=== PATIENT | female | born 1995 | race Caucasian/White ===

== ENCOUNTER 2016-12-25 04:14 | Emergency (ER) | payer OTHER ==
[~2016-12-25] VITALS: Ht 162.6 cm; Wt 59.1 kg
[2016-12-25 04:17] VITALS: BP 146/94; RESP 16; O2SAT 100
--- NOTE | 2016-12-25 04:27 | ED.REPORT ---
HPI-Eye Problem Date of Service Dec 25, 2016 ED Provider: Luis Montero MD Patient is a 21 year old female who presents to the ED complaining of bilateral eye irritation and discharge that began yesterday. Patient states that her eyes are itchy and uncomfortable. Patient has not recently been exposed to anyone that has an eye infection and she does not wear contact lenses. Patient also believes that she has been exposed to an STD and would like to be tested. She reports having unprotected sexual intercourse several times with the same male partner and that she has had multiple sexual partners. She does not know if any of her pervious partners had confirmed STDs. Patient states that she has recently developed foul smelling vaginal discharge. Patient denies pelvic pain. Nursing Notes Stated Complaint: LEFT EYE DISCHARGE Chief Complaint: ENT & Mouth Nursing Notes Reviewed: Yes Allergies: Coded Allergies: Latex, Natural Rubber (Verified Allergy, Intermediate, Rash,Itching,, 12/25) No Active Prescriptions or Reported Meds General Time Seen by MD: 04:26 Chief Complaint Left eye affected, Discharge..., Irritation/itching Hx Obtained From: Patient Arrived By: Walk-in Sudden in Onset?: No Onset Occurred: Yesterday Symptom Duration: Since onset Progression Since Onset: Gradually worsening Location: : Eye both Quality: Painful Severity: Current: Mild Severity: Maximum: Moderate Related History: Denies: Contact lens use Recent Healthcare: No recent doctor visit, No recent hospitalization Similar Sx Previous: No Past Medical History Past Medical History history of PID, trichomonas, and chlamydia Past Surgical History Jaw surgery Leg surgery, ears as a child Smoking History Current Every Day Smoker Social History Alcohol Use: Denies alcohol use Drug Use: Meth Other Social History: Good social support, Local resident Occupation single, homeless, not interested in social work at this time Ambulatory Status Independent Review of Systems Eyes: Reports: Discharge bilateral, Eye pain bilateral, Redness bilateral Complete sys rev & neg: except as marked. Female: Reports: Vaginal discharge, Denies: Pelvic pain Physical Exam Initial Vital Signs Vital Signs (First) Date Time Temp Pulse Resp B/P Pulse Ox O2 Delivery O2 Flow Rate FiO2 12/25/16 04:17 36.9 113 16 146/94 100 Room Air Initial VS: Reviewed, Vital signs abnormal Neck: Supple, Full range of motion Abdomen / GI: Soft, Non-tender Extremities: Vascular intact, Neuro intact Neurologic: Alert, Oriented, Nonfocal Psychiatric: Mood/affect normal, Behavior normal, Normal thought content Head / Eyes: Normocephalic, PERRL Conjunctiva / Sclera: Positive: Discharge L... (mattered), Discharge R... ( mattered), Injected left, Injected right General/Constitutional: Awake, Alert, No acute distress ENT: Airway patent, Mucous membranes moist Skin: Warm, Dry Rash / Lesion Notes: facial acne Neck: Supple, Full range of motion Respiratory / Chest: No respiratory distress, No stridor Cardiovascular: Heart rate NL, Regular rhythm Female Genitourinary: Meteorology Teacher present (MARYAN Gallagher) Vaginal Bleeding / Discharge: Positive: Discharge white (slight white discharge with fishy over) Pelvic Exam: Positive: Cervical motion tend... (mild cervical tenderness and erythema) Interpretation & Diagnostics Lab Results Interpretation Test 12/25/16 05:00 Re-Eval/Medical Decision Med Decision/Clinical Course Bilateral conjunctivitis without evidence of foreign body. She is not a contact wearer. She has not been exposed as far she knows. She was given gentamicin and flurbiprofen. Bacterial culture and chlamydia NAAT is pending. Vaginal discharge with clue cells consistent with bacterial vaginosis. Chlamydia and gonorrhea NAAT is pending. She will call me in 2 nights to discuss results. Source of Hx: Old records Re-Evaluation/Progress #1: Time of Eval: 05:00 Re-Evaluation/Progress Note: Pelvic exam performed. Re-Evaluation/Progress #2: Time of Eval: 05:57 Re-Evaluation/Progress Note: Informed the patient of the results of her wet prep. She will be treated for bacterial vaginosis. Awaiting the rest of her test results. Patient understands and agrees with the plan to be discharged home. Discharge instructions and follow-up discussed. All questions were addressed. Return to the ED warnings given. Counseled Regarding: Diagnosis, Lab results, Need for follow-up, When/why to return to ED Discharge & Departure Primary Impression: Conjunctivitis Conjunctivitis type: acute Acute conjunctivitis type: bacterial Laterality : bilateral Qualified Code: H10.023 - Other mucopurulent conjunctivitis, bilateral Additional Impression: Bacterial vaginosis Disposition: Home Discharge Condition All VS Reviewed: Yes Condition: Stable Patient Instructions: Bacterial Vaginosis (ED), Conjunctivitis (ED), Sexually Transmitted Diseases (ED) Additional Instructions: We will treat your conjunctivitis with gentamicin antibiotic drops and flurbiprofen pain medication drops. Cultures are pending to further differentiate the cause of this. Your vaginal discharge seems to be from bacterial vaginosis. Metronidazole 500 mg by mouth 3 times a day for 7 days, #21 prescription dispensed. Do not drink alcohol while you are on this medication. Cultures are also pending for this. Contact me at [phone] between the hours of 9 PM and 6 AM for the next couple of nights as needed for questions and concerns. Referrals: OTHER,PHYSICIAN (PCP) Scribe Attestation Portions of this note were transcribed by Meme Roblero. I, Dr. Montero personally performed the history, physical exam and medical decision-making; I reviewed and confirmed the accuracy of the information in the transcribed note. Signed by: Beth Iqbal, 12/25/2016 0557 copies to: OTHER,PHYSICIAN Luis Montero MD Dec 25, 2016 04:27 Meme Roblero Dec 25, 2016 04:42
[2016-12-25] MEDS ORDERED: _Gentamicin 0.3% Oph Solution 5 mL AFFECT_EYE SCH (05:50)
[2016-12-25] MEDS ORDERED: _Flurbiprofen 0.03% Oph Soln 2.5 mL AFFECT_EYE SCH (06:00)
[2016-12-25 06:07] VITALS: BP 138/84; PULSE 104; RESP 16; O2SAT 99
[2016-12-25] MEDS ORDERED: _metroNIDAZOLE 500 mg Tablet PO SCH (08:30)
== END 2016-12-25 06:08 | disposition home or self-care (01) ==
LOC: SED 04:14
DX: H10.023 Other mucopurulent conjunctivitis, bilateral (principal); N76.0 Acute vaginitis; F17.210 Nicotine dependence, cigarettes, uncomplicated; Z91.040 Latex allergy status

== ENCOUNTER 2017-02-18 23:12 | Emergency (ER) | payer OTHER ==
[~2017-02-18] VITALS: Ht 162.6 cm; Wt 54.5 kg
[2017-02-18 23:13] VITALS: BP 132/95; PULSE 118; RESP 20; O2SAT 100
--- NOTE | 2017-02-18 23:14 | ED.REPORT ---
HPI-General Illness Date of Service Feb 18, 2017 ED Provider: MD Chava This is a 21 year old female with a history of PID, trichomonas, and chlamydia presenting to the emergency department due to cough that began one month ago. Describes progressively worsening productive cough with green sputum. This is associated with nasal congestion, bilateral earache, headache, and low back pain. Denies hematemesis, dysuria, fever, chills, nausea, vomiting, shortness of breath, bowel or bladder changes at this time. Nursing Notes Stated Complaint: COUGH,HEADACHE,BACK PAIN Chief Complaint: FLU/Cold Symptoms Nursing Notes Reviewed: Yes Allergies: Coded Allergies: Latex, Natural Rubber (Verified Allergy, Intermediate, Rash,Itching,, 02/18) Scheduled Cephalexin (Keflex) 500 Mg Capsule 500 MG PO QID Prednisone (PredniSONE) 20 Mg Tablet 60 MG PO DAILY General Time Seen by MD: 23:14 Chief Complaint Cough Hx Obtained From: Patient Arrived By: Walk-in Sudden in Onset?: Yes Onset Occurred: More than a week ago... (1 month) Symptom Duration: Since onset Severity: Current: Mild Pertinent Negative: Pt denies other symptoms Recent Healthcare: No recent doctor visit, No recent hospitalization Similar Sx Previous: No Past Medical History Past Medical History history of PID, trichomonas, and chlamydia Past Surgical History Jaw surgery Leg surgery, ears as a child Smoking History Current Every Day Smoker Social History Alcohol Use: Denies alcohol use Drug Use: Meth Other Social History: Good social support, Local resident Occupation single, homeless, not interested in social work at this time Ambulatory Status Independent Review of Systems Full Review of Systems Constitutional: Denies: Chills, Fever Respiratory: Reports: Prod cough, green, Denies: Shortness of breath Cardiovascular: Denies: Chest pain GI: Denies: Abdominal pain, Constipation, Diarrhea, Nausea, Vomiting Female: Denies: Dysuria Musculoskeletal: Reports: Back pain Neurologic: Reports: Headache Complete sys rev & neg: except as marked. Physical Exam Vital Signs Vital Signs Date Time Temp Pulse Resp B/P Pulse Ox O2 Delivery O2 Flow Rate FiO2 02/19/17 01:08 88 18 Room Air 02/18/17 23:51 119 18 96 Room Air 02/18/17 23:13 36.8 118 20 132/95 100 Room Air - Initial VS: Reviewed Neck: Supple, Non-tender, Full range of motion Cardiovascular: Regular rate & rhythm, Heart sounds normal, Intact distal pulses Abdomen / GI: Soft, Non-tender, No guarding, No rebound, No distention Extremities: Vascular intact, Neuro intact, No swelling, No tenderness Skin: Warm, Dry, No cyanosis Neurologic: Alert, Oriented, Nonfocal Psychiatric: Mood/affect normal, Behavior normal, Normal thought content General/Constitutional: Awake, Alert ENT: Airway patent, Mucous membranes moist Respiratory / Chest: No respiratory distress, No rales, No wheezing Rales / Rhonchi: Positive: Rhonchi diffuse Bronchospastic cough Interpretation & Diagnostics Lab Results Interpretation Test 02/19/17 00:26 Urine Color Yellow (YELLOW) Urine Appearance Cloudy (CLEAR,HAZY) Urine pH 6.0 (5.0-8.0) Urine Specific [place] 1.025 (1.003-1.035) Urine Protein Negativemg/dL (NEG,TRACE) Urine Glucose (UA) Negativemg/dL (NEGATIVE) Urine Ketones Tracemg/dL (NEGATIVE) Urine Occult Blood Moderate (NEGATIVE) Urine Nitrite Positive (NEGATIVE) Urine Bilirubin Negative (NEGATIVE) Urine Urobilinogen Normalmg/dL (NORMAL) Urine Leukocyte Esterase Trace (NEGATIVE) Urine RBC 0-2/hpf (0-2) Urine WBC >50/hpf (0-5) Urine Epithelial Cells Few/hpf (NONE-MOD) Urine Crystals None seen (NONE SEEN) Urine Bacteria Many/hpf (NONE-FEW) Urine Hyaline Casts None/lpf (NONE) Urine Granular Casts None seen (NONE SEEN) Urine Waxy Casts None seen (NONE SEEN) Urine Red Blood Cell Casts None seen (NONE SEEN) Urine White Blood Cell Casts None seen (NONE SEEN) Urine Mucus None seen (None Seen) Urine Trichomonas None seen (NONE SEEN) Urine Yeast None (NONE SEEN) Urinalysis Comment Urine Culture Reflexed Indicated X-Ray Chest Interpretation Interpretation / Wet Read by: Wet read ED physician NL X-Ray Chest Findings: No acute disease Re-Eval/Medical Decision Med Decision/Clinical Course 21-year-old female presents with persistent constant cough for three months, and incidental dysuria. She continues to smoke. Cough is grossly bronchospastic, but x-ray does not reveal pneumonia. It does show significant changes of COPD. She is improved after nebulizer and is discharged with an albuterol puffer and spacer. Begun with Keflex for bronchitis as well as for her UTI. Brief steroid course prescribed. Smoking cessation strongly advised. Follow up with PCP. Time of Eval: 00:56 Re-Evaluation/Progress Note: Discussed lab and imaging results and plan for d/c, all questions addressed. Counseled Regarding: Diagnosis, Lab results, Need for follow-up Discharge & Departure Primary Impression: Bronchitis Additional Impressions: Chronic obstructive pulmonary disease COPD type: unspecified COPD Qualified Code: J44.9 - Chronic obstructive pulmonary disease, unspecified UTI (urinary tract infection) Urinary tract infection type: site unspecified Hematuria presence: without hematuria Qualified Code: N39.0 - Urinary tract infection, site not specified Disposition: Home Discharge Condition All VS Reviewed: Yes Condition: Stable Patient Instructions: Chronic Obstructive Pulmonary Disease (ED) Additional Instructions: Begin prednisone three tabs daily for five days. Begin albuterol two puffs with spacer every four hours for cough and wheeze. Ibuprofen as needed for back pain. Begin Keflex four times daily for ten days. Follow-up with your doctor in the office. He may follow up at residency clinic if you need local care. Return if worsening breathing problems despite treatment. Referrals: OTHER,PHYSICIAN (PCP) [facility] Scribe Attestation Portions of this note were transcribed by Alfredo Santoyo. I, Dr. Larsen personally performed the history, physical exam and medical decision-making; I reviewed and confirmed the accuracy of the information in the transcribed note. Signed by Beth Gauthier, 02/18/2017 at 06:00. copies to: [facility] Anatoliy Larsen MD Feb 18, 2017 23:14 ALFREDO SANTOYO Feb 18, 2017 23:16
[2017-02-18] MEDS ORDERED: Albuterol-Ipratropium 3 mL Inhalation Solution NEB ONE (23:35)
[2017-02-18] MEDS ORDERED: Albuterol 2.5 mg/3 mL Inhalation Solution NEB ONE (23:35)
[2017-02-18 23:51] VITALS: PULSE 119; RESP 18; O2SAT 96
[2017-02-19] MEDS ORDERED: _Proair 200 Puff/8.5 GM Inhaler INHALATION PRN ×2 (00:10→00:17)
[2017-02-19 00:41] LABS: APPEARANCE,URINE CLOUDY (CLEAR,HAZY); COLOR,URINE YELLOW (YELLOW); OCCULT BLOOD,URINE MODERATE (NEGATIVE); UROBILINOGEN,URINE NORMAL (NORMAL)
[2017-02-19] MEDS ORDERED: CEPH-512 PO (00:45)
[2017-02-19] MEDS ORDERED: Dexamethasone 20 mg/2 mL Oral Solution PO ONE (00:45)
[2017-02-19] MEDS ORDERED: PRE20 PO (00:45)
[2017-02-19 01:08] VITALS: PULSE 88; RESP 18
--- NOTE | 2017-02-19 09:34 | DRSVH ---
PROCEDURE: X-RAY CHEST, TWO VIEWS ([id number]) INDICATIONS: chronic cough TECHNIQUE: 2 views of the chest were acquired. COMPARISON: None. FINDINGS: Surgical changes and devices: None. Lungs and pleura: No pleural effusions or pneumothorax. Right lower lobe airspace opacity present. Mediastinum: Mediastinal contours are normal. Heart size is normal. Bones and chest wall: No suspicious bony abnormalities. Soft tissues appear unremarkable. IMPRESSION: Right lower lobe aspiration versus pneumonia. Dr. Mosher given results at 0933 hours 02/19/2017. Dictated by: Garcia Kent RR Interpreted: Kendall Camara MD on 02/19/2017 at 9:30 Transcribed by: LOKI on 02/19/2017 at 9:33 Approved by: Kendall Camara M.D. on 02/19/2017 at 10:52
== END 2017-02-19 01:11 | disposition home or self-care (01) ==
LOC: SED 23:12
DX: J44.9 Chronic obstructive pulmonary disease, unspecified (principal); N39.0 Urinary tract infection, site not specified; F17.200 Nicotine dependence, unspecified, uncomplicated; Z91.040 Latex allergy status
CPT/HCPCS: 71020; 81000; 81025; 87070; 87086; 87088; 87186; 87205; 94640; 94664; 99285; J7613; J7620

== ENCOUNTER 2017-02-20 00:14 | Emergency (ER) | payer OTHER ==
[~2017-02-20] VITALS: Ht 162.6 cm; Wt 59.1 kg
[~2017-02-20 00:14] MED LIST: CEPH-512 PO; PRE20 PO
[2017-02-20 00:22] VITALS: BP 122/89; PULSE 142; RESP 18; O2SAT 97
[2017-02-20 00:45] VITALS: BP 141/83; PULSE 139; O2SAT 97
== END 2017-02-20 00:49 | disposition left against medical advice (07) ==
LOC: SED 00:14
DX: Z53.21 Procedure and treatment not carried out due to patient leaving prior to being seen by health care provider (principal)